=== PATIENT | male | born 1975 | race African-American/Black ===

== ENCOUNTER 2017-11-03 12:22 | Emergency (ER) | payer OTHER ==
[2017-11-03] MEDS: SOD CHLORIDE 0.9% 500 ML IV (12:51)
[2017-11-03] MEDS: KETOROLAC 15 MG INJ IV (12:54)
[2017-11-03] MEDS: QUETIAPINE 25 MG TAB PO (12:54)
== END 2017-11-03 14:13 | disposition home or self-care (01) ==
LOC: E/R 12:22
DX: F99 Mental disorder, not otherwise specified (principal); I10 Essential (primary) hypertension; E86.0 Dehydration
CPT/HCPCS: 93005; 96374; 99284-25

== ENCOUNTER 2018-02-12 00:22 | Emergency (ER) | payer SELFPAY, OTHER | END 2018-02-12 01:30 | disposition left against medical advice (07) | LOC: E/R 00:22 | DX: Z53.21 Procedure and treatment not carried out due to patient leaving prior to being seen by health care provider (principal) ==

== ENCOUNTER 2018-02-13 05:35 | Emergency (ER) | payer OTHER ==
[2018-02-13] MEDS: LORAZEPAM 1 MG TAB PO (07:00)
== END 2018-02-13 08:37 | disposition home or self-care (01) ==
LOC: E/R 05:35
DX: R07.9 Chest pain, unspecified (principal); R40.2142 Coma scale, eyes open, spontaneous, at arrival to emergency department; R40.2362 Coma scale, best motor response, obeys commands, at arrival to emergency department; R40.2252 Coma scale, best verbal response, oriented, at arrival to emergency department; F41.9 Anxiety disorder, unspecified; I10 Essential (primary) hypertension; F17.210 Nicotine dependence, cigarettes, uncomplicated; Z91.14 Patient's other noncompliance with medication regimen
CPT/HCPCS: 93005; 99283

== ENCOUNTER 2018-05-21 23:08 | Emergency (ER) | payer OTHER ==
[2018-05-22 01:05] LABS: ADD UMIC NO; UR ASCORBIC ACID NEGATIVE (NEGATIVE); UR BILIRUBIN (Dip) NEGATIVE (NEGATIVE); UR BLOOD (Dip) NEGATIVE (NEGATIVE); UR CLARITY SLIGHTLY CLOUDY (CLEAR); UR COLOR STRAW (YELLOW); UR GLUCOSE (Dip) 1+ mg/dL (NEGATIVE); UR KETONES (Dip) NEGATIVE (NEGATIVE); UR LEUKOCYTE ESTERASE (Dip) NEGATIVE Leu/ul (NEGATIVE); UR NITRITE (Dip) NEGATIVE (NEGATIVE); UR RBC 1 /HPF (0-5); UR SPECIFIC GRAVITY (Dip) 1.004 (1.003-1.030); UR TOTAL PROTEIN (Dip) NEGATIVE (NEGATIVE); UR UROBILINOGEN (Dip) NEGATIVE (NEGATIVE); UR WBC 1 /HPF (0-5)
== END 2018-05-22 01:55 | disposition home or self-care (01) ==
LOC: E/R 23:08
DX: N48.89 Other specified disorders of penis (principal); I10 Essential (primary) hypertension; F17.210 Nicotine dependence, cigarettes, uncomplicated
CPT/HCPCS: 81001; 81003; 99283

== ENCOUNTER 2018-07-03 23:50 | Emergency (ER) | payer OTHER ==
[2018-07-04] MEDS: LORAZEPAM 2 MG INJ IM (01:46)
[2018-07-04] MEDS: SOD CHLORIDE 0.9% 1,000 ML IV (02:03)
== END 2018-07-04 04:13 | disposition home or self-care (01) ==
LOC: E/R 23:50
DX: I10 Essential (primary) hypertension (principal); F17.210 Nicotine dependence, cigarettes, uncomplicated
CPT/HCPCS: 93005; 96360; 96372; 99284-25